=== PATIENT | female | born 1950 | race African-American/Black ===

== ENCOUNTER 2017-09-24 09:50 | Outpatient (CLI) | payer MEDICARE ==
[2017-09-24] MEDS ORDERED: Iopamidol 370 76% 50 ML VIAL FS ONE (11:27)
[2017-09-24] MEDS ORDERED: Iopamidol 370 76% 100 ML VIAL ONE (11:27)
--- NOTE | 2017-09-24 13:59 | CT ---
CT NECK WITH AND WITHOUT CONTRAST: (PARATHYROID PROTOCOL) DATE: 09/24/2017 HISTORY: A 67-year-old female with hypercalcemia. TECHNIQUE: IV contrast: Isovue 120 mL. Precontrast scan, 25 second delayed postcontrast scan, and 65 second postcontrast delayed scan, all p erformed from 3 cm inferior to the bifurcation of the pulmonic trunk to the inferior edges of the jud ateral maxillary sinuses. Coronal and sagittal reconstructions. FINDINGS: Abutting the posterior surface of the upper pole of the left lobe of the thyroid gland, flanked later ally by the left common carotid artery, the pharyngeal constrictor/cricopharyngeus muscle complex med ially, and posteriorly by the longus colli muscle, centered at the C5-C6 level, there is a vertically elongated, approximately 2 x 0.4 x 0.8 cm enhancing piece of tissue, which does not contain intrinsi c iodine on the precontrast scan, and has moderate intensity of enhancement (images 55 of 97, series 5; 53 of 194, series 3; 62 of 170, series 601; 107 of 180, series 605; 55 of 97, series 2). There are multiple small bilateral thyroid nodules, which are unchanged compared to CT pulmonary jovana ogram of 01/07/2012. There are scattered, mildly enlarged, bilateral cervical lymph nodes, especiall y at levels 2 and 3. There is asymmetrical complete effacement of the left piriform sinus, and the r ight and left true and false vocal cords are slightly asymmetrical relative to each other. This is n onspecific. Multilevel moderate degenerative disk disease in the cervical spine. Otherwise, no major pathology involving the posterior cervical, retropharyngeal, parapharyngeal, subm andibular, parotid, paraeducator, perivertebral, and carotid spaces, except for focal calcified plaque at the proximal left internal carotid. IMPRESSION: 1. A left retrothyroidal nodule is a moderately good candidate for parathyroid adenoma. 2. Recommend correlation with nuclear medicine sestamibi scan. POS: [facility]
== END 2017-09-24 09:51 | disposition home or self-care (01) ==
LOC: CT 09:50
PROVIDERS: ATTEND Internal Medicine Nephrology
DX: E83.52 Hypercalcemia (principal); E04.1 Nontoxic single thyroid nodule
CPT/HCPCS: 70492; 82565

== ENCOUNTER 2018-09-23 15:19 | Outpatient (CLI) | payer MEDICARE ==
--- NOTE | 2018-09-23 15:59 | MMO ---
Bilateral MAMMO Bilat Screen [facility]. CLINICAL HISTORY: Patient is 68 years old and is seen for screening. The patient has the following family history of breast cancer: cousin gender unknown, at age 50, bilateral. The patient has no personal history of cancer. The patient has a history of left Excisional Biopsy in 2001 - benign. VIEWS: The views performed were: bilateral craniocaudal with tomosynthesis; bilateral mediolateral oblique with tomosynthesis; and right craniocaudal. FILMS COMPARED: The present examination has been compared to prior imaging studies performed at [facility] on 11/07/2010, 12/03/2011, 12/04/2013 and 02/20/2015. MAMMOGRAM FINDINGS: There are scattered fibroglandular densities. There are benign appearing calcifications seen in both breasts. There are no suspicious masses, suspicious calcifications, or new areas of architectural distortion. IMPRESSION: THERE IS NO MAMMOGRAPHIC EVIDENCE OF MALIGNANCY. A ROUTINE FOLLOW-UP MAMMOGRAM IN 1 YEAR IS RECOMMENDED. THE RESULTS OF THIS EXAM WERE SENT TO THE PATIENT. ACR BI-RADS Category 2 - Benign finding MAMMOGRAPHY NOTE: 1. A negative mammogram report should not delay a biopsy if a dominant of clinically suspicious mass is present. 2. Approximately 10% to 15% of breast cancers are not detected by mammography. 3. Adenosis and dense breasts may obscure an underlying neoplasm.
== END 2018-09-23 15:20 | disposition home or self-care (01) ==
LOC: BICMAMMO 15:19
PROVIDERS: ATTEND Family Medicine
DX: Z12.31 Encounter for screening mammogram for malignant neoplasm of breast (principal); Z80.3 Family history of malignant neoplasm of breast
CPT/HCPCS: 77063; 77067

== ENCOUNTER 2019-07-10 06:21 | Outpatient (CLI) | payer MEDICARE, MEDICAID ==
[2019-07-10 13:13] LABS: Anion Gap 10 mmol/L (10-20); BUN (Urea Nitrogen) 15 mg/dL (9.8-20.1); Calc. Creatinine Clearance 0 mL/min (70-130); Calcium 11.1 mg/dL (7.8-10.44); Carbon Dioxide 25 mmol/L (23-31); Chloride 105 mmol/L (98-107); Estimated GFR-MDRD 65; Glucose 178 mg/dL (83-110); Potassium 4.2 mmol/L (3.5-5.1); Sodium 136 mmol/L (136-145)
--- NOTE | 2019-07-13 08:19 | EKG ---
Test Reason : Blood Pressure : / mmHG Vent. Rate : 074 BPM Atrial Rate : 074 BPM P-R Int : 146 ms QRS Dur : 084 ms QT Int : 368 ms P-R-T Axes : 064 063 001 degrees QTc Int : 408 ms Normal sinus rhythm Cannot rule out Inferior infarct , age undetermined Cannot rule out Anterior infarct , age undetermined Abnormal ECG When compared with ECG of 07-JAN-2012 01:38, QRS duration has decreased Minimal criteria for Anterior infarct are now Present Minimal criteria for Inferior infarct are now Present Nonspecific T wave abnormality now evident in Lateral leads Confirmed by DR. Monty GUNTER ([id number]) on 07/13/2019 8:19:31 AM Referred By: DHEERAJ Confirmed By:DR. Monty GUNTER
== END 2019-07-10 06:22 | disposition home or self-care (01) ==
LOC: LABBT 06:21
PROVIDERS: ATTEND Obstetrics & Gynecology
DX: Z01.818 Encounter for other preprocedural examination (principal); N95.0 Postmenopausal bleeding
CPT/HCPCS: 80048; 93005; 93010

== ENCOUNTER 2019-07-11 09:53 | Day surgery (SDC) | payer MEDICARE, MEDICAID ==
[2019-07-10 10:23] VITALS: BMI 36.6
[2019-07-10 12:49] LABS: Hemoglobin 14.1 g/dL (12.0-16.0); Mean Corpuscular HGB CONC 34.1 g/dL (32.0-36.0); Mean Corpuscular Hemoglobin 31.4 pg (27.0-31.0); Mean Corpuscular Volume 91.9 fL (78.0-98.0); Mean Platelet Volume 7.8 fL (7.4-10.4); Platelet Count 289 thou/uL (130-400); RBC Distribution Width 12.7 % (11.5-14.5); Red Blood Cell (RBC) Count 4.48 mill/uL (4.20-5.40); White Blood Cell (WBC) Count 10.8 thou/uL (4.8-10.8)
[2019-07-11] MEDS ORDERED: PROPOFOL 200 MG/20 ML VIAL ONE (10:40)
[2019-07-11] MEDS ORDERED: Lidocaine 1% PF 5 ML VIAL ONE (10:40)
[2019-07-11] MEDS ORDERED: Ondansetron PF 4 MG/2 ML Vial ONE (10:40)
[2019-07-11] MEDS ORDERED: CeleCOXIB 100 MG CAP ONE (11:40)
[2019-07-11] MEDS ORDERED: Famotidine/PF 20 mg/2ml Vial ONE (11:40)
[2019-07-11] MEDS ORDERED: Fentanyl 100 MCG/2 ML VIAL ONE (13:45)
--- NOTE | 2019-07-11 22:24 | OP ---
DATE OF PROCEDURE: 07/11/2019 PREOPERATIVE DIAGNOSIS: Postmenopausal bleeding. POSTOPERATIVE DIAGNOSIS: Endometrial polyp. INTERNET MARKETING DIRECTOR: None. ANESTHESIA: GETA. COMPLICATIONS: None. ESTIMATED BLOOD LOSS: Less than 10 mL. PROCEDURE PERFORMED: Hysteroscopy with cervical dilation, polypectomy, and curettage. OPERATIVE FINDINGS: 1. Normal-appearing vagina and cervix with atrophic findings, otherwise normal. 2. Uterus sounds to 6 cm. 3. Endometrial polyp visualized before the polypectomy. 4. Normal intrauterine cavity with no polyp noted at the end of the procedure. DESCRIPTION OF PROCEDURE: The patient was taken back to the OR with IV fluids running. When she was in the OR, general anesthesia was obtained. The patient was then placed in dorsal supine position. The vagina was prepped and draped in normal fashion for hysteroscopy. When I arrived to the room, the patient was prepped and draped. I was gowned and gloved. I drained her bladder approximately 200 mL. At this time, I went to assemble the hysteroscope with the light cord, noted to be on and on the drape. The light source had penetrated the drape which was lying over the patient's gown. The abdomen was immediately inspected by the nurses, myself, and anesthesia team with no evidence of injury to the skin. At this point, the cervix was serially dilated to approximately 18-Citizen Of [place]. Hysteroscope was placed under direct visualization through the cervix and into the intrauterine cavity with the above findings noted. Polyp forceps was used to remove the large majority of the endometrial polyp. A curettage was then performed to remove the remaining stalk of the polyp. Hysteroscope was passed back through the cervix and into the uterine cavity with confirmation of complete polypectomy. Specimens were handed off for pathologic review. The cervix was inspected. No areas of bleeding noted at the end of the case. All counts were correct. The patient was cleaned and dry. Her abdominal skin was inspected again with no evidence of injury from the light cord. The patient was cleaned and dried, extubated, and transferred to the recovery room in good condition. Job ID: [id number]
== END 2019-07-11 18:34 | disposition home or self-care (01) ==
LOC: SDC 09:53
PROVIDERS: ATTEND Obstetrics & Gynecology
PROC: 0UB98ZX Excision of Uterus, Via Natural or Artificial Opening Endoscopic, Diagnostic (ICD-10-PCS; principal; 2019-07-11)
DX: N84.0 Polyp of corpus uteri (principal); K21.9 Gastro-esophageal reflux disease without esophagitis; F41.9 Anxiety disorder, unspecified; E78.00 Pure hypercholesterolemia, unspecified; I10 Essential (primary) hypertension; E11.9 Type 2 diabetes mellitus without complications; Z79.4 Long term (current) use of insulin; Z79.899 Other long term (current) drug therapy
CPT/HCPCS: 36416; 85027; 86850; 86900; 86901; 88305; J0690; J2001; J2405; J2704; J3010; S0028

== ENCOUNTER 2019-09-25 11:18 | Outpatient (CLI) | payer MEDICARE, MEDICAID ==
--- NOTE | 2019-09-25 11:58 | MMO ---
Bilateral MAMMO Bilat Screen [facility]. CLINICAL HISTORY: Patient is 69 years old and is seen for screening. The patient has the following family history of breast cancer: cousin gender unknown, at age 50, bilateral. The patient has no personal history of cancer. The patient has a history of left Excisional Biopsy in 2001 - benign. VIEWS: The views performed were: bilateral craniocaudal with tomosynthesis and bilateral mediolateral oblique with tomosynthesis. FILMS COMPARED: The present examination has been compared to prior imaging studies performed at [facility] on 12/03/2011, 12/04/2013, 02/20/2015 and 09/23/2018. This study has been interpreted with the assistance of computer-aided detection. MAMMOGRAM FINDINGS: There are scattered fibroglandular densities. Benign calcifications are noted bilaterally. Nodularity is stable. There are no suspicious masses, suspicious calcifications, or new areas of architectural distortion. IMPRESSION: THERE IS NO MAMMOGRAPHIC EVIDENCE OF MALIGNANCY. A ROUTINE FOLLOW-UP MAMMOGRAM IN 1 YEAR IS RECOMMENDED. THE RESULTS OF THIS EXAM WERE SENT TO THE PATIENT. ACR BI-RADS Category 2 - Benign finding MAMMOGRAPHY NOTE: 1. A negative mammogram report should not delay a biopsy if a dominant of clinically suspicious mass is present. 2. Approximately 10% to 15% of breast cancers are not detected by mammography. 3. Adenosis and dense breasts may obscure an underlying neoplasm. Reported by: PETER NAYLOR MD Electonically Signed: [id number]
== END 2019-09-25 11:19 | disposition home or self-care (01) ==
LOC: BICMAMMO 11:18
PROVIDERS: ATTEND Family Medicine
DX: Z12.31 Encounter for screening mammogram for malignant neoplasm of breast (principal); Z80.3 Family history of malignant neoplasm of breast; Z91.89 Other specified personal risk factors, not elsewhere classified
CPT/HCPCS: 77063; 77067

== ENCOUNTER 2021-02-03 13:22 | Outpatient (CLI) | payer MEDICARE, MEDICAID | END 2021-02-03 13:23 | disposition home or self-care (01) | LOC: BICMAMMO 13:22 | PROVIDERS: ATTEND Family Medicine | DX: Z12.31 Encounter for screening mammogram for malignant neoplasm of breast (principal); Z80.3 Family history of malignant neoplasm of breast | CPT/HCPCS: 77063; 77067 ==

== ENCOUNTER 2022-06-23 14:03 | Outpatient (CLI) | payer MEDICARE, MEDICAID | END 2022-06-23 14:04 | disposition home or self-care (01) | LOC: BICMAMMO 14:03 | PROVIDERS: ATTEND Family Medicine | DX: Z12.31 Encounter for screening mammogram for malignant neoplasm of breast (principal); Z80.3 Family history of malignant neoplasm of breast; Z91.89 Other specified personal risk factors, not elsewhere classified | CPT/HCPCS: 77063; 77067 ==

== ENCOUNTER 2022-07-07 08:17 | Outpatient (CLI) | payer MEDICARE, MEDICAID | END 2022-07-07 08:18 | disposition home or self-care (01) | LOC: ULT 08:17 | PROVIDERS: ATTEND Family Medicine | DX: R79.89 Other specified abnormal findings of blood chemistry (principal); K76.0 Fatty (change of) liver, not elsewhere classified; N28.1 Cyst of kidney, acquired | CPT/HCPCS: 76700 ==

== ENCOUNTER 2022-07-16 21:40 | Observation (INO) | payer MEDICARE, OTHER ==
[~2022-07-16 21:40] MED LIST: Iopamidol-370 76% 500 ML 1 ML ONE
[2022-07-16 22:29] LABS: #Basophils 0.1 thou/uL (0.0-0.2); #Lymphocytes 2.5 thou/uL (1.20-3.40); #Monocytes 0.8 thou/uL (0.11-0.59); %Basophils 0.5 % (0.0-1.0); %Eosinophils 0.2 % (0.0-10.0); %Lymphocytes 16.4 % (21.0-51.0); %Monocytes 5.2 % (0.0-10.0); %Neutrophils 77.7 % (42.0-75.0); Hemoglobin 15.6 g/dL (12.0-16.0); Mean Corpuscular HGB CONC 33.9 g/dL (32.0-36.0); Mean Corpuscular Hemoglobin 31.5 pg (27.0-31.0); Mean Platelet Volume 7.2 fL (7.4-10.4); Platelet Count 331 10x3/uL (130-400); RBC Distribution Width 12.4 % (11.5-14.5); Red Blood Cell (RBC) Count 4.96 mill/uL (4.20-5.40); White Blood Cell (WBC) Count 15.4 10x3/uL (4.8-10.8)
[2022-07-16 22:42] LABS: ALT (SGPT) 18 U/L (8-55); AST (SGOT) 16 U/L (5-34); Albumin 4.3 g/dL (3.4-4.8); Alkaline Phosphatase 144 U/L (40-110); Anion Gap 15 mmol/L (10-20); BUN (Urea Nitrogen) 17 mg/dL (9.8-20.1); Bilirubin, Total 0.4 mg/dL (0.2-1.2); Calc. Creatinine Clearance 0 mL/min (70-130); Calcium 11.4 mg/dL (7.8-10.44); Carbon Dioxide 18 mmol/L (23-31); Chloride 106 mmol/L (98-107); Estimated GFR 58; Globulin 5.2 g/dL (2.4-3.5); Glucose 170 mg/dL (83-110); Protein, Total 9.5 g/dL (5.8-8.1); Sodium 135 mmol/L (136-145)
[2022-07-17] MEDS ORDERED: Labetalol HCl 100 MG/20 ML VIAL ONE (00:01)
[2022-07-17 00:52] LABS: Bacteria/HPF 1+ HPF (None Seen); Bilirubin Negative (Negative); Blood, Urine Negative (Negative); Clarity Clear (Clear); Glucose, Urine (Dipstick) Normal (Negative); Ketone, Urine Trace mg/dL (Negative); Leukocyte 25 Leu/uL (Negative); Nitrite Negative (Negative); Protein, Urine (Dipstick) Negative (Neg-Trace); RBC/HPF 0-3 HPF (0-3); Specific Gravity, Urine 1.021 (1.002-1.036); Squamous Epithelial 0-3 HPF (0-3); Urobilinogen Normal mg/dL (Less than 2); pH, Urine 6.5 (5.0-9.0)
[2022-07-17] MEDS ORDERED: Acetaminophen 325 MG TAB PO PRN (02:09)
[2022-07-17] MEDS ORDERED: Ondansetron PF 4 MG/2 ML Vial IVP PRN (02:09)
[2022-07-17] MEDS ORDERED: Ondansetron ODT 4 MG TAB PO PRN (02:09)
[2022-07-17] MEDS ORDERED: Calcium Carbonate 500 MG ChewTAB PO PRN (02:09)
[2022-07-17] MEDS ORDERED: HumaLOG 300 UNITS/3 ML VIAL SC PRN ×2 (02:09)
[2022-07-17] MEDS ORDERED: Senokot S 8.6-50 MG TAB PO PRN (02:09)
[2022-07-17] MEDS ORDERED: Dextrose 5% in Water 1,000 ML IV PRN (02:09)
[2022-07-17] MEDS ORDERED: Dextrose 50% Abboject 50 ML SYRINGE SLOW IVP PRN (02:09)
[2022-07-17 02:36] LABS: Troponin I 0.014 ng/mL (< 0.028)
[2022-07-17 02:38] LABS: Magnesium 1.7 mg/dL (1.6-2.6); Phosphorus 2.1 mg/dL (2.3-4.7)
[2022-07-17 03:29] VITALS: BMI 29.1
[2022-07-17 05:36] LABS: #Lymphocytes 1.6 thou/uL (1.20-3.40); #Monocytes 0.4 thou/uL (0.11-0.59); #Neutrophils 10.4 thou/uL (1.40-6.50); %Basophils 0.3 % (0.0-1.0); %Eosinophils 0.1 % (0.0-10.0); %Monocytes 3.5 % (0.0-10.0); %Neutrophils 83.2 % (42.0-75.0); Hemoglobin 15.7 g/dL (12.0-16.0); Mean Corpuscular HGB CONC 33.8 g/dL (32.0-36.0); Mean Corpuscular Hemoglobin 31.7 pg (27.0-31.0); Mean Corpuscular Volume 93.6 fl (78.0-98.0); Mean Platelet Volume 7.4 fL (7.4-10.4); Platelet Count 308 10x3/uL (130-400); RBC Distribution Width 12.6 % (11.5-14.5); Red Blood Cell (RBC) Count 4.96 mill/uL (4.20-5.40); White Blood Cell (WBC) Count 12.5 10x3/uL (4.8-10.8)
[2022-07-17 06:01] LABS: Troponin I 0.022 ng/mL (< 0.028)
[2022-07-17 06:05] LABS: ALT (SGPT) 16 U/L (8-55); AST (SGOT) 17 U/L (5-34); Albumin 4.3 g/dL (3.4-4.8); Alkaline Phosphatase 143 U/L (40-110); Anion Gap 12 mmol/L (10-20); BUN (Urea Nitrogen) 13 mg/dL (9.8-20.1); Bilirubin, Total 0.5 mg/dL (0.2-1.2); Calc. Creatinine Clearance 66 mL/min (70-130); Calcium 11.1 mg/dL (7.8-10.44); Carbon Dioxide 20 mmol/L (23-31); Chloride 105 mmol/L (98-107); Estimated GFR 64; Globulin 5.2 g/dL (2.4-3.5); Glucose 172 mg/dL (83-110); Potassium 3.9 mmol/L (3.5-5.1); Protein, Total 9.5 g/dL (5.8-8.1); Sodium 133 mmol/L (136-145)
[2022-07-17] MEDS ORDERED: Metoprolol Tartrate 100 MG TAB PO SCH (09:00)
[2022-07-17] MEDS ORDERED: Aspirin 81 mg Enteric Coated Tablet PO SCH (09:00)
[2022-07-17] MEDS ORDERED: cloNIDine 0.2 MG TAB PO SCH (09:00)
[2022-07-17] MEDS ORDERED: Insulin Glargine 30 UNITS/0.3 ML VIAL SC SCH (09:00)
[2022-07-17] MEDS ORDERED: Lisinopril 5 MG TAB PO SCH (09:00)
[2022-07-17 17:24] VITALS: BP 129/62; TEMP 97.7
== END 2022-07-17 17:49 | disposition home or self-care (01) ==
LOC: ERS 21:40 → 2SW 07-17 01:35
PROVIDERS: ADMIT Student in an Organized Health Care Education/Training Program; ATTEND Family Medicine
DX: R00.0 Tachycardia, unspecified (principal); E83.52 Hypercalcemia; D72.829 Elevated white blood cell count, unspecified; R07.89 Other chest pain; Z20.822 Contact with and (suspected) exposure to COVID-19; I16.0 Hypertensive urgency; I10 Essential (primary) hypertension; I08.3 Combined rheumatic disorders of mitral, aortic and tricuspid valves; E78.5 Hyperlipidemia, unspecified; E11.9 Type 2 diabetes mellitus without complications; E86.0 Dehydration; K21.9 Gastro-esophageal reflux disease without esophagitis; Z79.4 Long term (current) use of insulin; Z79.82 Long term (current) use of aspirin; Z79.85 Long-term (current) use of injectable non-insulin antidiabetic drugs; Z79.899 Other long term (current) drug therapy
CPT/HCPCS: 71045; 71275; 80053; 82962; 83605; 83735; 83880; 84100; 84484 ×3; 85025; 87040; 87086; 93005; 93306; 96374; 96375; 99285; G0378 ×2; U0003; U0005; 36415; 36416; 81003; 81015; 84443; J1815; J2405; Q9967